=== PATIENT | female | born 1990 ===

== ENCOUNTER 2016-10-01 00:05 | Emergency (ER) | payer OTHER ==
[2016-10-01] MEDS ORDERED: Albuterol-Ipratrop 3 mg / 0.5 (3 ml) UD INH STA (00:35)
[2016-10-01 01:16] VITALS: BP 97/46; RESP 18; TEMP 97.9; O2SAT 100
--- NOTE | 2016-10-01 01:24 | ED PDOC ---
HPI: CCC, URI, Sore Throat Time Seen by Provider: 10/01/16 00:28 Chief Complaint (Nursing): Cough, Cold, Congestion Chief Complaint (Provider): cough, sinus pressure, SOB History Per: Patient History/Exam Limitations: no limitations Onset/Duration Of Symptoms: Days (3-4) Current Symptoms Are (Timing): Still Present Location Of Pain: Throat, Sinus/es, Headache Sick Contacts (Context): None Associated Symptoms: Chills, Sore Throat, Cough Ear Symptoms: Bilateral: Ear Fullness Severity: Moderate Additional Complaint(s): 26yo female c/o productive cough, SOB, sinus pain/pressure, purulent nasal drainage, headache and malaise ongoing 2-3 days. Taking mucinex and motrin without relief. Denies vomiting, diarrhea or dysphagia. Past Medical History Reviewed: Historical Data, Nursing Documentation, Vital Signs Vital Signs: Last Vital Signs Temp 97.9 F 10/01/16 00:27 Pulse 66 10/01/16 00:27 Resp 18 10/01/16 00:27 BP 97/46 L 10/01/16 00:27 Pulse Ox 100 10/01/16 00:27 - Medical History PMH: No Chronic Diseases - Surgical History Surgical History: No Surg Hx - Family History Family History: States: Unknown Family Hx - Living Arrangements Living Arrangements: With Family - Social History Current smoker - smoking cessation education provided: No - Home Medications Home Medications: Ambulatory Orders Medication Instructions Recorded Azithromycin [Zithromax] 250 mg PO DAILY #6 tab 10/01/16 Cetirizine HCl/Pseudoephedrine 1 each PO BID PRN #14 tab.er.12h 10/01/16 [Zyrtec-D Tablet] Fluticasone Nasal [Flonase] 1 actuation NS DAILY #1 spr 10/01/16 Naproxen [Naprosyn] 500 mg PO BID PRN #14 tablet 10/01/16 - Allergies Allergies/Adverse Reactions: Allergies Allergy/AdvReac Type Severity Reaction Status Date / Time No Known Allergies Allergy Verified 10/01/16 00:26 Review of Systems Constitutional: Positive for: Chills, Malaise Eyes: Negative for: Vision Change ENT: Positive for: Ear Pain, Nose Discharge, Throat Pain. Negative for: Throat Swelling Cardiovascular: Negative for: Chest Pain, Palpitations Respiratory: Positive for: Cough, Shortness of Breath Gastrointestinal: Negative for: Nausea, Vomiting, Abdominal Pain Genitourinary Female: Negative for: Dysuria Musculoskeletal: Negative for: Neck Pain, Shoulder Pain, Arm Pain Skin: Negative for: Rash, Lesions, Jaundice Neurological: Negative for: Weakness, Numbness Psych: Negative for: Anxiety Physical Exam - Reviewed Nursing Documentation Reviewed: Yes Vital Signs Reviewed: Yes - Physical Exam Appears: Positive for: Well, Non-toxic, No Acute Distress Head Exam: Positive for: ATRAUMATIC, NORMAL INSPECTION, NORMOCEPHALIC Skin: Positive for: Normal Color, Warm, DRY Eye Exam: Positive for: EOMI, Normal appearance, PERRL ENT: Positive for: Pharynx Is, TM Is/Are (+fluid b/l), Nasal Congestion, Pharyngeal Erythema, Tonsillar Exudate (trace), Tonsillar Swelling, Other ( nasal turbinates w mild exudate, boggy and inflammed) Neck: Positive for: Normal, Painless ROM Cardiovascular/Chest: Positive for: Regular Rate, Rhythm Respiratory: Positive for: CNT, Normal Breath Sounds Pulses-Radial (L): 2+ Pulses-Radial (R): 2+ Gastrointestinal/Abdominal: Positive for: Bowel Sounds, Soft. Negative for: Tenderness Back: Positive for: Normal Inspection Extremity: Positive for: Normal ROM Neurologic/Psych: Positive for: Alert, Oriented, Gait (normal). Negative for: Motor/Sensory Deficits - ECG ECG: Positive for: Interpreted By Me ECG Rhythm: Positive for: Sinus Bradycardia. Negative for: ST/T Changes Rate: 53 O2 Sat by Pulse Oximetry: 100 Pulse Ox Interpretation: Normal - Radiology X-Ray: Interpreted by Me X-Ray Interpretation: No Acute Disease Medical Decision Making Medical Decision Making: Given duoneb in ED to see if helped with chest tightness. EKG performed based on c/o SOB and protocol Results discussed. Feels better in ED although duoneb minimal effect as not likely severe bronchoconstriction. Rec course Azithromycin, Rx flonase, zyrtec and naprosyn. Drink plenty fluids. Followup ENT/ PMD/ [facility]. Disposition - Clinical Impression Clinical Impression: Upper respiratory infection, Acute rhinosinusitis - Patient ED Disposition Is Patient to be Admitted: No Counseled Patient/Family Regarding: Studies Performed, Diagnosis, Need For Followup, Rx Given - Disposition Referrals: Beau Bright MD [Staff Provider] - Disposition: Routine/Home Disposition Time: 01:20 Condition: STABLE Additional Instructions: Take medications as directed. Followup with primary doctor for further testing if symptoms persist. Return to ER for any worse or new symptoms. Prescriptions: Azithromycin [Zithromax] 250 mg PO DAILY #6 tab Cetirizine HCl/Pseudoephedrine [Zyrtec-D Tablet] 1 each PO BID PRN #14 tab.er.12h PRN Reason: Other Fluticasone Nasal [Flonase] 1 actuation NS DAILY #1 spr Naproxen [Naprosyn] 500 mg PO BID PRN #14 tablet PRN Reason: Pain, Moderate (4-7) Instructions: Rhinosinusitis (ED)
[2016-10-01 01:41] VITALS: PULSE 53
--- NOTE | 2016-10-01 10:28 | RAD ---
HISTORY: SOB COMPARISON: None available. TECHNIQUE: Chest PA and lateral FINDINGS: LUNGS: No focal consolidation. Please note that chest x-ray has limited sensitivity for the detection of pulmonary masses. PLEURA: No significant pleural effusion identified. No definite pneumothorax . CARDIOVASCULAR: The cardiomediastinal silhouette appears within normal limits of size. OSSEOUS STRUCTURES: No acute osseous abnormality identified. VISUALIZED UPPER ABDOMEN: Unremarkable. OTHER FINDINGS: None. IMPRESSION: No focal consolidation, significant pleural effusion, or definite pneumothorax identified.
--- NOTE | 2016-10-01 23:53 | CARD ---
APPROVED REPORT EKG Measurement Heart [id number] <Conclusion> Sinus bradycardia Otherwise normal ECG
== END 2016-10-01 01:46 | disposition home or self-care (01) ==
LOC: H.ER 00:05
DX: J02.9 Acute pharyngitis, unspecified (principal); J01.90 Acute sinusitis, unspecified